=== PATIENT | male | born 1935 | race Caucasian/White ===

== ENCOUNTER 2016-07-03 09:43 | Day surgery (SDC) | payer OTHER ==
[~2016-07-03] VITALS: Ht 162.6 cm; Wt 74.8 kg
[~2016-07-03 09:43] MED LIST: 24 HOUR ALLER15.8 ML BOTH NARES; ADALAT CC 60 MG60 MG PO; ALTACE10 MG PO; AMBIEN10 MG PO; ASPIR 8181 M1 PO; ATENOLOL25 MG PO; CYANOCOBALAM1000 MCG PO; FERROUS SULFAT325 MG PO; FLONASE16 G1 BOTH NARES; LIPITOR80 MG PO; NEXIUM 24HR20 M1 PO; NEXIUM20 MG PO; NITROSTAT0.4 MG SL; PLAVIX75 MG PO; SYNALAR 0.025%15 GM TP; TENORMIN25 MG PO; TRAMADOL HCL50 MG PO; VITAMIN D2000 INTUN PO; VITAMIN D2000 UNIT PO; ZETIA10 MG PO
== END 2016-07-03 18:05 | disposition home or self-care (01) ==
LOC: CATH 09:43
DX: T82.868A Thrombosis due to vascular prosthetic devices, implants and grafts, initial encounter (principal); I25.10 Atherosclerotic heart disease of native coronary artery without angina pectoris; H54.42 Blindness, left eye, normal vision right eye; Z95.1 Presence of aortocoronary bypass graft; I10 Essential (primary) hypertension; E78.00 Pure hypercholesterolemia, unspecified; Z79.82 Long term (current) use of aspirin; Z79.01 Long term (current) use of anticoagulants; Z79.899 Other long term (current) drug therapy; K21.9 Gastro-esophageal reflux disease without esophagitis; Z87.891 Personal history of nicotine dependence
CPT/HCPCS: 85347; C1769; C1887; J1200; J1644; J2250; J2765; J2930; J3010